=== PATIENT | female | born 1990 | race Two or more races ===

== ENCOUNTER 2020-06-26 11:23 | Emergency (ER) | payer SELFPAY ==
--- NOTE | 2020-06-26 13:23 | ER Document Report ---
ED Medical Screen (RME) - General Chief Complaint: Flank Pain Stated Complaint: RIGHT FLANK PAIN,LEG PAIN Time Seen by Provider: 06/26/20 13:12 Mode of Arrival: Ambulatory Information source: Patient Notes: HPI; 29-year-old female Estonian-speaking only was interviewed with asl interpreter service Rosalee presents to the emergency room complaining of right flank pain for the past 15 days. States it does radiate down her right leg. Denies any trauma or injury. States she went and saw a doctor who gave her medication that was not helping. She takes ibuprofen with some relief. States the pain is constant is worse with movement does complain of dysuria. Denies any fevers, no nausea, no vomiting. Denies any loss control of her bowels or bladder. No saddle anesthesia. No red flags. PE: Alert and oriented x3. Lungs: Clear to auscultation without rales, rhonchi, wheezes. Heart: Regular rate rhythm without murmurs, rubs, gallops. I have greeted and performed a rapid initial assessment of this patient. A comprehensive ED assessment and evaluation of the patient, analysis of test results and completion of the medical decision making process will be conducted by additional ED providers. I have specifically instructed the patient or family members with the patient to immediately return to any nursing staff should anything change in the patient's condition or with their chief complaint. TRAVEL OUTSIDE OF THE [place] IN LAST 30 DAYS: No - Related Data Allergies/Adverse Reactions: No Known Allergies Allergy (Verified 06/26/20 13:20) Physical Exam - Vital signs Vitals: Temp Pulse Resp BP Pulse Ox 98.3 F 93 20 158/80 H 100 06/26/20 11:55 06/26/20 11:55 06/26/20 11:55 06/26/20 11:55 06/26/20 11:55 Course - Vital Signs Vital signs: Temp Pulse Resp BP Pulse Ox 98.3 F 93 20 158/80 H 100 06/26/20 11:55 06/26/20 11:55 06/26/20 11:55 06/26/20 11:55 06/26/20 11:55
[2020-06-26 13:58] LABS: APPEARANCE,URINE SLIGHTLY-CLOUDY; BILIRUBIN,URINE NEGATIVE (NEGATIVE); COLOR,URINE YELLOW; GLUCOSE, URINE NEGATIVE (NEGATIVE); KETONES,URINE NEGATIVE (NEGATIVE); LEUKOCYTE ESTERASE,URINE LARGE (NEGATIVE); NITRITE,URINE NEGATIVE (NEGATIVE); PROTEIN,URINE NEGATIVE (NEGATIVE); URINE SPECIFIC GRAVITY 1.024; UROBILINOGEN,URINE NEGATIVE mg/dL (<2.0)
[2020-06-26 14:10] LABS: ABSOLUTE EOSINOPHILS # (AUTO) 0.1 10^3/uL (0.0-0.6); ABSOLUTE LYMPHOCYTES (AUTO) 2.1 10^3/uL (0.5-4.7); ABSOLUTE MONOCYTES (AUTO) 0.8 10^3/uL (0.1-1.4); BASOPHILS % (AUTO) 0.3 % (0-2); EOSINOPHILS % (AUTO) 0.8 % (0-6); HEMATOCRIT 40.6 % (36.0-47.0); HEMOGLOBIN 13.7 g/dL (12.0-15.5); LYMPHOCYTES % (AUTO) 20.8 % (13-45); MEAN CORPUSCULAR HEMOGLOBIN 26.9 pg (27.0-33.4); MEAN CORPUSCULAR HGB CONC 33.8 g/dL (32.0-36.0); MEAN CORPUSCULAR VOLUME 80 fl (80-97); PLATELET COUNT 219 10^3/uL (150-450); SEGMENTED NEUTROPHILS % (AUTO) 70.1 % (42-78); TOTAL CELLS COUNTED % (AUTO) 100 %; WHITE BLOOD COUNT 10.1 10^3/uL (4.0-10.5)
[2020-06-26 14:11] LABS: ALBUMIN 4.3 g/dL (3.5-5.0); ALKALINE PHOSPHATASE 79 U/L (38-126); ANION GAP 7 (5-19); ASPARTATE AMINO TRANSFERASE 19 U/L (14-36); BILIRUBIN,DIRECT 0.1 mg/dL (0.0-0.4); BILIRUBIN,TOTAL 0.4 mg/dL (0.2-1.3); BLOOD UREA NITROGEN 10 mg/dL (7-20); CALCIUM 9.1 mg/dL (8.4-10.2); CARBON DIOXIDE 26 mmol/L (22-30); CHLORIDE 104 mmol/L (98-107); GLUCOSE 93 mg/dL (75-110); POTASSIUM 4.1 mmol/L (3.6-5.0); TOTAL PROTEIN 7.7 g/dL (6.3-8.2)
[2020-06-26] MEDS ORDERED: ACETAMINOPHEN 325 MG TABLET PO ONE (14:47)
--- NOTE | 2020-06-26 17:51 | RADIOLOGY REPORT (SQ) ---
EXAM DESCRIPTION: U/S OB TRANSVAGINAL W/O DOP IMAGES COMPLETED DATE/TIME: 06/26/2020 4:29 pm REASON FOR STUDY: +hcg, low abd/back pain COMPARISON: None. TECHNIQUE: Transvaginal static and realtime grayscale images acquired of the pelvis. Additional brigida cted spectral and color Doppler images recorded. All images stored on PACs. bHCG: Not available. CLINICAL DATES: LMP 05/23/2020 4 weeks 6 days LIMITATIONS: None. FINDINGS: FETUS: No intrauterine gestation is seen at this time. UTERUS: No masses. No anomalies. CERVICAL LENGTH: 1.9 cm. Closed. RIGHT ADNEXA: Normal ovary with normal vascular flow. 1.5 x 1.6 x 2 cm. No adnexal free fluid. No adnexal masses. LEFT ADNEXA: Ovary with normal vascular flow. 3.9 x 2.5 x 2 cm. Possible 19 mm corpus luteum. No adnexal free fluid. No adnexal masses. FREE FLUID: None. OTHER: No other significant finding. IMPRESSION: No intrauterine gestation is seen at this time. Follow-up as clinically indicated. TECHNICAL DOCUMENTATION: JOB ID: [id number] 2010 [employer]- All Rights Reserved rev-12/05 Reading location - IP/workstation name: [email or web address]
--- NOTE | 2020-06-26 18:27 | ER Document Report ---
ED GI/ - General Chief Complaint: Flank Pain Stated Complaint: RIGHT FLANK PAIN,LEG PAIN Time Seen by Provider: 06/26/20 13:12 Primary Care Provider: [facility] [Outside] - Follow up as needed Mode of Arrival: Ambulatory Information source: Patient Notes: 29-year-old female Cape Verdean-speaking only was interviewed with mental health therapist service Rosalee presents to the emergency room complaining of right flank pain for the past 15 days. States it does radiate down her right leg. Denies any trauma or injury. States she went and saw a doctor who gave her medication that was not helping. She takes ibuprofen with some relief. States the pain is constant is worse with movement does complain of dysuria. Denies any fevers, no nausea, no vomiting. Denies any loss control of her bowels or bladder. No saddle anesthesia. TRAVEL OUTSIDE OF THE [place] IN LAST 30 DAYS: No - Related Data Allergies/Adverse Reactions: No Known Allergies Allergy (Verified 06/26/20 13:20) Past Medical History - General Information source: Patient - Social History Smoking Status: Never Smoker Family History: Reviewed & Not Pertinent - Medical History Medical History: Negative Surgical Hx: Negative - Immunizations Immunizations up to date: Yes Review of Systems - Review of Systems Genitourinary: Flank pain -: Yes All other systems reviewed and negative Physical Exam - Vital signs Vitals: Temp Pulse Resp BP Pulse Ox 98.3 F 93 20 158/80 H 100 06/26/20 11:55 06/26/20 11:55 06/26/20 11:55 06/26/20 11:55 06/26/20 11:55 - Notes Notes: PHYSICAL EXAMINATION: GENERAL: Well-appearing, well-nourished and in no acute distress. HEAD: Atraumatic, normocephalic. EYES: Pupils equal round and reactive to light, extraocular movements intact, conjunctiva are normal. ENT: Nares patent, oropharynx clear without exudates. Moist mucous membranes. NECK: Normal range of motion, supple without lymphadenopathy LUNGS: Breath sounds clear to auscultation bilaterally and equal. No wheezes rales or rhonchi. HEART: Regular rate and rhythm without murmurs ABDOMEN: Soft, nontender, nondistended abdomen. No guarding, no rebound. No masses appreciated. Female : No CVA tenderness Musculoskeletal: Normal range of motion, no pitting or edema. No cyanosis. NEUROLOGICAL: Cranial nerves grossly intact. Normal speech, normal gait. Normal sensory, motor exams PSYCH: Normal mood, normal affect. SKIN: Warm, Dry, normal turgor, no rashes or lesions noted. Course - Re-evaluation Re-evalutation: Patient appears well, nontoxic. hCG via serum is positive. No gestational sac noted on ultrasound however if she is she is very early. She does have urinary tract infection. She will need to be started on antibiotics. I stressed the urgency of her following up to have a repeat ultrasound done in 2 weeks. Strict ED return precautions were discussed, patient verbalized understanding and agreement with this plan. All of this was discussed using the [employer] translation system. - Vital Signs Vital signs: Temp Pulse Resp BP Pulse Ox 98.1 F 88 16 154/74 H 99 06/26/20 18:47 06/26/20 18:47 06/26/20 18:47 06/26/20 18:47 06/26/20 18:47 - Laboratory Results Result Diagrams: 06/26/20 13:30 06/26/20 13:30 Laboratory Results Interpreted: 06/26/20 06/26/20 06/26/20 13:30 13:30 13:30 MCH 26.9 L Serum HCG, Qual POSITIVE H Beta HCG, Quant Urine Blood SMALL H Ur Leukocyte Esterase LARGE H 06/26/20 13:30 MCH Serum HCG, Qual Beta HCG, Quant 89.54 H Urine Blood Ur Leukocyte Esterase Critical Laboratory Results Reviewed: No Critical Results - Radiology Results Critical Radiology Results Reviewed: No Critical Results Discharge - Discharge Clinical Impression: Urinary tract infection affecting Qualifiers: Weeks of gestation: less than 8 weeks Qualified Code(s): Z3A.01 - Less than 8 weeks gestation of Condition: Stable Disposition: HOME, SELF-CARE Instructions: Urinary Tract Infection ([facility]) Additional Instructions: You are approximately 4 weeks . Please follow up with the [facility] to establish care. Prescriptions: Cephalexin [Keflex] 500 mg PO BID #14 capsule Referrals: [facility] [Outside] - Follow up as needed Print Language: Cape Verdean
[2020-06-26 18:48] VITALS: BP 154/74
== END 2020-06-26 18:47 | disposition home or self-care (01) ==
LOC: ER 11:23
DX: O23.41 Unspecified infection of urinary tract in pregnancy, first trimester (principal); O26.891 Other specified pregnancy related conditions, first trimester; R10.9 Unspecified abdominal pain; R30.0 Dysuria; M79.604 Pain in right leg; Z3A.01 Less than 8 weeks gestation of pregnancy
CPT/HCPCS: 36415; 76817; 80053; 81001; 83690; 84702; 84703; 85025; 99284

== ENCOUNTER 2020-06-28 11:48 | Emergency (ER) | payer SELFPAY ==
--- NOTE | 2020-06-28 12:20 | ER Document Report ---
ED General - General Chief Complaint: Vaginal Bleeding Stated Complaint: VAGINAL BLEEDING Time Seen by Provider: 06/28/20 11:55 Notes: 29-year-old female G3, P2 recently found out to be , 3-4 weeks? LMP 11 3, who is status post tubal ligation then reversal presents with lower abdominal pain and bleeding. Started 24 hours ago has some small clots and the bleeding is not heavy. No lightheadedness. The pain is bilateral lower quadrant that radiates to the back. She not had lightheadedness or vomiting. TRAVEL OUTSIDE OF THE [place] IN LAST 30 DAYS: No - Related Data Allergies/Adverse Reactions: No Known Allergies Allergy (Verified 06/26/20 13:20) Past Medical History - General Information source: Patient - Social History Smoking Status: Never Smoker Family History: Reviewed & Not Pertinent - Immunizations Immunizations up to date: Yes Review of Systems - Review of Systems Notes: REVIEW OF SYSTEMS GEN: Denies fever, chills, weight loss ENT: Denies sore throat, nasal discharge, ear pain EYES: Denies blurry vision, eye pain, discharge CV: Denies chest pain, palpitations, edema RESP: Denies cough, shortness of breath, wheezing GI: See HPI MSK: Denies joint pain/swelling, edema, SKIN: Denies rash, skin lesions LYMPH: Denies swollen glands/lymph nodes NEURO: Denies headache, focal weakness or numbness, dizziness PSYCH: Denies depression, suicidal or homicidal ideation PHYSICAL EXAMINATION General: No acute distress, well-nourished Head: Atraumatic, normocephalic ENT: Mouth normal, oropharynx moist, no exudates or tonsillar enlargement Eyes: Conjunctiva normal, pupils equal, lids normal Neck: No JVD, supple, no guarding CVS: Normal rate, regular rhythm, no murmurs Resp: No resp distress, equal and normal breath sounds bilaterally GI: Nondistended, soft, no tenderness to palpation, no rebound or guarding Ext: No deformities, no edema, normal range of motion in upper and lower ext Back: No CVA or midline TTP Skin: No rash, warm Lymphatic: No lymphadeopathy noted Neuro: Awake, alert. Face symmetric. GCS 15. Physical Exam - Vital signs Vitals: Temp Pulse Resp BP Pulse Ox 98.3 F 101 H 20 150/89 H 100 06/28/20 12:00 06/28/20 12:00 06/28/20 12:00 06/28/20 12:00 06/28/20 12:00 Course - Re-evaluation Re-evalutation: 06/28/20 12:20 First trimester bleeding and pain heart rate 101 history of tube ligation makes her high risk for ectopic Spontaneous versus normal versus implantation bleeding versus ectopic We will recheck beta blood type transvaginal to sound 06/28/20 16:03 Beta level is quite low, Rh+ Reassessed at 4 PM. Normal heart rate no pain Discussed with Gerry unknown location possibly ectopic unruptured but highly desired. He will see patient on Friday in the office and I spoke with her in Tuvaluan directly for at least 10 minutes describing the situation including precautions. She verbalized understanding I have discussed with the patient there likely diagnosis, aftercare plan, follow-up plans and my usual and customary return precautions. They verbalized understanding of this. Please note that clinical decision making for this patient was made during the 2019 pandemic of novel coronavirus which caused a significant strain on the healthcare system including at this particular facility. Criteria for admission, discharge and level of care decisions as well as treatment decisions have necessarily changed. ovid - Vital Signs Vital signs: Temp Pulse Resp BP Pulse Ox 98.3 F 101 H 20 150/89 H 100 06/28/20 12:00 06/28/20 12:00 06/28/20 12:00 06/28/20 12:00 06/28/20 12:00 - Laboratory Results Result Diagrams: 06/28/20 12:40 Laboratory Results Interpreted: 06/28/20 06/28/20 06/28/20 12:09 12:40 12:40 MCV 79 L MCH 26.8 L Seg Neutrophils % 79.7 H Beta HCG, Quant 54.78 H Urine Blood LARGE H Critical Laboratory Results Reviewed: No Critical Results - Radiology Results Critical Radiology Results Reviewed: No Critical Results Discharge - Discharge Clinical Impression: , location unknown, First trimester bleeding Condition: Good Disposition: HOME, SELF-CARE Instructions: Ectopic Precaution ([facility]) Additional Instructions: As we discussed it is unclear if the is miscarrying or is growing in the tubes which can be dangerous. If you develop any abdominal pain dizziness sweating or other concerning symptoms return to ER immediately. I spoken with Dr. Garrett from [facility] and they will see you in the office Friday morning. Please call their office afternoon before 5:00 to find out when you will be seen on Friday. If for some reason you cannot be seen in their office come to the ED even if you feel fine we will recheck your hormone level. Referrals: ARCHIE GARRETT MD [ACTIVE STAFF] - 06/30/20
[2020-06-28 12:51] LABS: APPEARANCE,URINE CLEAR; BILIRUBIN,URINE NEGATIVE (NEGATIVE); COLOR,URINE LIGHT YELLOW; GLUCOSE, URINE NEGATIVE (NEGATIVE); KETONES,URINE NEGATIVE (NEGATIVE); NITRITE,URINE NEGATIVE (NEGATIVE); PROTEIN,URINE NEGATIVE (NEGATIVE); URINE SPECIFIC GRAVITY 1.021; UROBILINOGEN,URINE NEGATIVE mg/dL (<2.0)
[2020-06-28 12:52] LABS: ADD MANUAL MICROSCOPIC YES; LEUKOCYTE ESTERASE,URINE NEGATIVE (NEGATIVE); YEAST,URINE PRESENT
[2020-06-28 12:59] LABS: ABSOLUTE LYMPHOCYTES (AUTO) 1.1 10^3/uL (0.5-4.7); ABSOLUTE MONOCYTES (AUTO) 0.4 10^3/uL (0.1-1.4); ABSOLUTE NEUT (AUTO) 6.4 10^3/uL (1.7-8.2); BASOPHILS % (AUTO) 0.3 % (0-2); EOSINOPHILS % (AUTO) 0.6 % (0-6); HEMATOCRIT 37.6 % (36.0-47.0); HEMOGLOBIN 12.8 g/dL (12.0-15.5); MEAN CORPUSCULAR HEMOGLOBIN 26.8 pg (27.0-33.4); MEAN CORPUSCULAR VOLUME 79 fl (80-97); MONOCYTES % (AUTO) 5.4 % (3-13); PLATELET COUNT 196 10^3/uL (150-450); RED BLOOD COUNT 4.76 10^6/uL (3.72-5.28); RED CELL DISTRIBUTION WIDTH 13.9 % (11.5-14.0); SEGMENTED NEUTROPHILS % (AUTO) 79.7 % (42-78); TOTAL CELLS COUNTED % (AUTO) 100 %
--- NOTE | 2020-06-28 14:16 | RADIOLOGY REPORT (SQ) ---
EXAM DESCRIPTION: U/S OB TRANSVAGINAL W/O DOP IMAGES COMPLETED DATE/TIME: 06/28/2020 12:34 pm TECHNIQUE: Transvaginal static and realtime grayscale images acquired of the pelvis. Additional brigida cted spectral and color Doppler images recorded. All images stored on PACs. bHCG: Beta HCG is not available today. On 06/26/2020 beta HCG was 89.5. CLINICAL DATES: LMP 05/23/2020. Estimated gestational age based on LMP 5 weeks 1 day. LIMITATIONS: None. FINDINGS: UTERUS: No visualized intrauterine . The uterus is retroverted with normal size and contour. There is a subserosal uterine leiomyoma measuring 1.5 x 1.2 cm along the posterior body . This does not involve the endometrial canal or encroach on the endometrial lining. RIGHT ADNEXA: Normal ovary with normal vascular flow. No adnexal free fluid. No adnexal masses. LEFT ADNEXA: Normal ovary with normal vascular flow. Small amount of free fluid in the left adnexa and cul-de-sac. Dominant cyst within the left ovary ma y represent a corpus luteum follicle. No adnexal masses. FREE FLUID: Small amount of free fluid in the pelvic cul-de-sac. OTHER: No other significant finding. IMPRESSION: NO VISUALIZED INTRA- OR EXTRAUTERINE . bHCG LEVEL TOO LOW TO EXPECT VISUALIZATION OF . ECTOPIC CANNOT BE EXCLUDED. FOLLOW-UP ULTRASOUND AND SERIAL BHCG LEVELS STRONGLY RECOMMENDED TO ACCURATELY ASSESS STATU S. TECHNICAL DOCUMENTATION: JOB ID: [id number] 2010 [employer]- All Rights Reserved REASON FOR STUDY: first trim bnleed first trim bleeding. COMPARISON: None. 06/26/2020 Reading location - IP/workstation name: [email or web address]
[2020-06-28 16:08] VITALS: BP 130/77
== END 2020-06-28 16:07 | disposition home or self-care (01) ==
LOC: ER 11:48
DX: O46.91 Antepartum hemorrhage, unspecified, first trimester (principal); O26.891 Other specified pregnancy related conditions, first trimester; R10.30 Lower abdominal pain, unspecified; Z3A.01 Less than 8 weeks gestation of pregnancy
CPT/HCPCS: 36415; 76817; 81001; 84702; 85025; 86900; 86901; 99284